=== PATIENT | female | born 1995 | race Caucasian/White ===

== ENCOUNTER 2016-06-21 15:16 | Inpatient (IN) | payer BC, MEDICAID ==
[~2016-06-21] VITALS: Ht 182.9 cm; Wt 94.8 kg
[~2016-06-21 15:16] MED LIST: IBUPROFEN600 MG PO; MOTRIN600 MG PO; PERCOCET 5-3251 TAB PO; PERCOCET 5/3251 TA1 PO; PRENATAL COMPLE1 TAB
[2016-06-21] MEDS ORDERED: PRENATAL COMPLE1 TAB PO (15:26)
[2016-06-21 15:33] VITALS: BP 115/73; BMI 28.4
[2016-06-21 16:02] LABS: HEMATOCRIT 35.4 % (36.0-48.0); HEMOGLOBIN 11.7 g/dL (12-16); MCH 28.5 pg (26.0-34.0); MCHC 33.1 g/dL (31.0-37.0); MCV 86.1 fL (80.0-100.0); MEAN PLATELET VOLUME 12.4 fL (7.4-10.4); RBC 4.11 10x6/uL (4.00-5.40); RDW 13.4 % (11.5-14.5); WBC 11.5 10x3/uL (4.8-10.8)
[2016-06-21 23:15] VITALS: BP 111/57
--- NOTE | 2016-06-21 23:19 | NUR ---
PT AMBULATES TO PP ROOM 1257 WITH MINIMAL ASSISTANCE. PT IS A 21 YO G3 NOW P3 WITH OF VIABLE FEMALE TODAY @ 2015. INFANT @ 38.3 WKS GESTATION. PT WITH SUPERFICIAL LACERATIONS AND NO REPAIRS. PT S/P AMBULATION AND VOID. PT WITH JOSE CARE PERFORMED, JOSE PAD AND PANTIES IN PLACE. CLEAN GOWN PLACED. 18G SL IN PLACE TO LEFT HAND, FLUSHED WITH 5CC NS WITHOUT DIFFICULTY. NO REDNESS OR EDEMA NOTED AT SITE. PT C/O PAIN, RATES 2/10. DENIES THE NEED FOR PAIN MEDICATION AT THIS TIME. WATER MUG PROVIDED TO PT. BED IN LOW POSITION, SIDE RAILS UP TIMES 2, CALL LIGHT AND PHONE IN REACH. SO AT PT BS FOR SUPPORT AND ASSISTANCE. LINENS PROVIDED TO SO FOR NIGHT. PT ENCOURAGED TO CALL WITH ANY NEEDS.
--- NOTE | 2016-06-22 00:35 | NUR ---
RN TO PT BS FOR ROUNDS. PT RESTING IN BED IN SEMI-FOWLERS POSITION INFANT. PT IN NO ACUTE DISTRESS. PT DENIES ANY NEEDS AT THIS TIME. BED IN LOW POSITION, SIDE RAILS UP TIMES 2, CALL LIGHT AND PHONE IN REACH. SO REMAINS AT PT BS FOR SUPPORT AND ASSISTANCE. WILL CONT TO MONITOR PT STATUS.
--- NOTE | 2016-06-22 01:56 | NUR ---
RN TO PT BS. PT C/O PAIN, REQUESTS MEDICATION. 1 TAB IBUPROFEN PROVIDED TO PT AT THIS TIME. PT DENIES ANY FURTHER NEEDS AT THIS TIME. BED IN LOW POSITION, SIDE RAILS UP TIMES 2, CALL LIGHT AND PHONE IN REACH. SO REMAINS AT PT BS FOR SUPPORT AND ASSISTANCE. WILL CONT TO MONITOR PT STATUS.
--- NOTE | 2016-06-22 03:48 | NUR ---
INFANT TRANSPORTED TO PT BS IN OPEN CRIB. PT RESTING IN BED IN SEMI-FOWLERS POSITION, WITH EYES CLOSED IN NO ACUTE DISTRESS. PT AWAKENS EASILY WHEN SPOKEN TO. ID BANDS VERIFIED TIMES 2. PT ASSISTED WITH LATCHING INFANT TO BREAST FEED. BED IN LOW POSITION, SIDE RAILS UP TIMES 2, CALL LIGHT AND PHONE IN REACH. SO AT PT BS FOR SUPPORT AND ASSISTANCE. WILL CONT TO MONITOR PT STATUS.
--- NOTE | 2016-06-22 05:15 | NUR ---
RN TO PT BS FOR ROUNDS. PT RESTING IN BED IN SEMI-FOWLERS POSITION HOLDING IN NO ACUTE DISTRESS. PT REQUESTS BE TRANSPORTED TO NURSERY FOR OBSERVATION. PT DENIES ANY FURTHER NEEDS AT THIS TIME. BED IN LOW POSITION, SIDE RAILS UP TIMES 2, CALL LIGHT AND PHONE IN REACH. SO REMAINS AT PT BS FOR SUPPORT AND ASSISTANCE. TRANSPORTED TO NURSERY VIA OPEN CRIB AT THIS TIME.
--- NOTE | 2016-06-22 06:30 | NUR ---
RN TO PT BS FOR ROUNDS. PT RESTING IN BED IN RIGHT LATERAL POSITION, WITH EYES CLOSED, IN NO ACUTE DISTRESS. RESPIRATIONS EVEN AND UNLABORED. BED IN LOW POSITION, SIDE RAILS UP TIMES 2, CALL LIGHT AND PHONE IN REACH. SO REMAINS AT PT BS FOR SUPPORT AND ASSISTANCE. WILL CONT TO MONITOR PT STATUS AND GIVE REPORT TO AM SHIFT.
[2016-06-22 06:44] LABS: BASOPHILS 0.1 % (0.0-2.0); EOSINOPHILS 1.9 % (0-7); HEMATOCRIT 32.6 % (36.0-48.0); HEMOGLOBIN 10.5 g/dL (12-16); IMMATURE GRANULOCYTES 0.4 % (0-5); LYMPHOCYTES 19.1 % (15-50); MCHC 32.2 g/dL (31.0-37.0); MCV 86.9 fL (80.0-100.0); MEAN PLATELET VOLUME 11.6 fL (7.4-10.4); MONOCYTES 7.9 % (2-11); NEUTROPHILS 70.6 % (40-80); RBC 3.75 10x6/uL (4.00-5.40); RDW 13.3 % (11.5-14.5)
[2016-06-22 06:50] LABS: PLATELET COUNT 183 10x3/uL (130-400); WBC 15.5 10x3/uL (4.8-10.8)
--- NOTE | 2016-06-22 07:30 | NUR ---
RECEIVED PT LYING SUPINE IN BED. EYES CLOSED. RESP NON-LABORED. PT NOT DISTURBED TO ALLOW FOR REST. SR UP X 2. CALL LIGHT IN REACH.
[2016-06-22 08:45] VITALS: BP 116/59
--- NOTE | 2016-06-22 08:45 | NUR ---
PT SITTING UP IN BED. FINISHED WITH . VSS. HRRR WITHOUT AUDIBLE MURMUR. BBS CLEAR. BS X 4. ABDOMEN SOFT/NON-DISTENDED. FUNDUS FIRM AT U/U. RUBRA LOCHIA SMALL AMT. PT DENIES HEAVY BLEEDING OR PASSING CLOTS. NEG HOMANS' SIGN. PPP. NO EDEMA NOTED TO BLE. SL TO LEFT FOREARM. SITE CLEAR. PT C/O ABDOMINAL CRAMPING OF "3" ON 0-10 PAIN SCALE.
--- NOTE | 2016-06-22 08:57 | NUR ---
IBUPROFEN 600 MG GIVEN PO ORDERED FOR PT C/O CRAMPING OF "3" ON 0-10 PAIN SCALE. PT ALSO GIVEN DERMAPLAST SPRAY, EPIFOAM AND TUCKS FOR PERINEAL CARE. PT INSTRUCTED ON ALL MEDS. VERBALIZES UNDERSTANDING. PT PROVIDED COKE AND FRESH ICE WATER.
--- NOTE | 2016-06-22 09:45 | NUR ---
PT SITTING UP IN BED. VISITS WITH SO. DENIES C/O PAIN OR NEEDS.
--- NOTE | 2016-06-22 11:15 | NUR ---
PT SITTING UP IN BED. DENIES C/O OR NEEDS. STATES DESIRE TO SHOWER LATER.
--- NOTE | 2016-06-22 13:20 | NUR ---
PT SITTING UP IN BED. VISITS WITH SO. DENIES PAIN OR NEEDS. STATES HAS SHOWERED AND TOLERATED WELL.
[2016-06-22 13:41] VITALS: Ht 182.9 cm; Wt 94.8 kg
[2016-06-22 14:33] VITALS: BP 87/56
--- NOTE | 2016-06-22 14:33 | NUR ---
PT LYING TO LEFT SIDE IN BED. AWAKE. VSS. PT DENIES PAIN OR NEEDS. DENIES HEAVY BLEEDING OR PASSING CLOTS. FAMILY IN ROOM WITH PT.
--- NOTE | 2016-06-22 15:39 | NUR ---
PT CALLS ON LIGHT. C/O ABDOMINAL CRAMPING OF "3" ON 0-10 PAIN SCALE. IBUPROFEN 600 MG GIVEN PO ORDERED. PT INSTRUCTED ON MED. VERBALIZES UNDERSTANDING.
--- NOTE | 2016-06-22 16:20 | NUR ---
PT SITTING UP IN BED. VISITS WITH FAMILY. DENIES PAIN OR NEEDS.
--- NOTE | 2016-06-22 17:50 | NUR ---
PT SITTING UPRIGHT IN BED. FAMILY IN ROOM. PT DENIES C/O PAIN OR NEEDS.
--- NOTE | 2016-06-22 19:02 | NUR ---
REPORT GIVEN TO ON-COMING SHIFT.
[2016-06-22 19:10] VITALS: BP 116/74
--- NOTE | 2016-06-22 20:15 | NUR ---
ROUNDS MADE. PT SITTING UP IN BED VISITING W/MULTIPLE GUESTS AT BEDSIDE. PT'S PAIN AND NEEDS ASSESSED. PT DENIES PAIN AT PRESENT. REQUEST SPRITE TO DRINK. SPRITE SERVED. NO FURTHER NEEDS VOICED AT THIS TIME.
--- NOTE | 2016-06-22 21:15 | NUR ---
ROUNDS MADE. PT CURRENTLY NURSING INFANT. DENIES NEEDS OR PAIN AT PRESENT. PT ASKED TO RING CALL LIGHT ONCE SHE HAS FINISHED NURSING SO THIS RN MAY RETURN TO ADMIN RHOGAM. IT IS AGREEABLE.
--- NOTE | 2016-06-22 21:45 | NUR ---
PT RINGS CALL LIGHT FOR THIS RN TO RETURN. MOM 30ML GIVEN PER ORDERS. RHOGAM INJECTION ADMINISTERED PER ORDERED PROTOCOL TO LEFT HIP. PT TOLERATED WELL. WHILE AT BEDSIDE, PT REQUEST MOTRIN FOR C/O CRAMPING THAT SHE RATES 3/10. MOTRIN 600MG PO GIVEN. PT AND SIG OTHER TO AMBULATE TO VENDING MACHINES AT THIS TIME. PT DENIES FURTHER NEEDS. TRASH REMOVED FROM PT'S ROOM AT THIS TIME.
--- NOTE | 2016-06-22 22:30 | NUR ---
ROUNDS MADE. PT CURRENTLY SITTING UP IN BED W/SIG OTHER AT BEDSIDE. PT'S PAIN REASSESSED. PT REPORTS PAIN 0/10. SALINE LOCKED DISCONTINUED INTACT. SITE WNL. BAND AID PLACED OVER SITE. NO FURTHER NEEDS VOICED AT THIS TIME. CONTINUED PM SHIFT POC DISCUSSED W/PT. PT VEBALIZES UNDERSTANDING AND IS AGREEBLE.
--- NOTE | 2016-06-23 00:39 | NUR ---
ROUNDS MADE. PT SITTING UP IN BED NURSING. DENIES PAIN OR NEEDS AT THIS TIME.
--- NOTE | 2016-06-23 00:51 | NUR ---
PT RINGS CALL LIGHT. PT REQUESTING PAIN MEDICATION AND ICE WATER. PERCOCET 5/325MG ONE TAB TAKEN TO ROOM. PT INFORMED THAT IT HAS NOT BEEN LONG ENOUGH THAT SHE CAN HAVE MOTRIN AGAIN. PERCOCET OFFERED. PT ACCEPTS. NO FURTHER NEEDS VOICED AT THIS TIME. SIG OTHER SITTING ON SIDE IF BED W/PT.
--- NOTE | 2016-06-23 02:03 | NUR ---
ROUNDS MADE. PT RESTING QUIETLY TO LEFT SIDE W/EYES CLOSED. RESP EVFEN. SIG OTHER IN BED W/PT. BOTH LEFT UNDISTURBED AT THIS TIME TO ALLOW FOR REST.
--- NOTE | 2016-06-23 03:09 | NUR ---
infant transported via crib to pt's room. pt awakened. positions self to sitting. infant placed in pt's arms for nursing. no needs voiced at this time.
--- NOTE | 2016-06-23 04:08 | NUR ---
ROUNDS MADE. PT SITTING UP IN BED. UP IN SIG OTHER'S ARMS. PT DENIES PAIN OR NEEDS AT THIS TIME.
--- NOTE | 2016-06-23 06:08 | NUR ---
ROUNDS MADE. PT RESTING QUIETLY W/EYES CLOSED IN SUPINE POSITION. RESP EVEN. PT LEFT UNDISTURBED AT THIS TIME.
[2016-06-23 06:15] LABS: RAPID PLASMA REAGIN Non Reactive (Non Reactive)
--- NOTE | 2016-06-23 06:55 | NUR ---
REPORT GIVEN TO ONCOMING SHIFT.
--- NOTE | 2016-06-23 07:45 | NUR ---
TO ROOM FOR AM ASSESSMENT WITH JORDAN RILEY RN. PT AWAKENED, LIGHTS TURNED ON/DIM IN ROOM. TAKEN TO ROOM, BY CRIB, BANDS VERIFIED. PT DENIES HEAVY BLEEDING OR PASSING CLOTS. PT HAS BREAKFAST TRAY ON BEDSIDE TABLE. VISITOR ASLEEP ON SOFA. SR UP X 2, CALL LIGHT AND PHONE WITHIN REACH.
[2016-06-23 07:55] VITALS: BP 104/61
--- NOTE | 2016-06-23 08:15 | NUR ---
dr. matthews in room speaking with pt.
--- NOTE | 2016-06-23 09:07 | NUR ---
PT SITTING UP IN BED WITH ON CHEST. DISCUSSED DISCHARGE INSTRUCTIONS. INCLUDED: PELVIC REST, PAIN CONTROL, USING BETADINE RINSE, FOLLOW UP APPT, AND SIGNS AND SYMPTOMS OF INFECTION. PRESCRIPTIONS GIVEN. PT VERABLIZED UNDERSTANDING AND DENIES QUESTIONS.
--- NOTE | 2016-06-23 09:08 | NUR ---
LE@ 8:00 Carol 06/23/16 S: Patient states is going great. This is her 3rd baby she has decided to breastfeed again. O: Patient is sitting up in bed holding , FOB at bedside. Congratulated on delivery. Encouraged to continue to latch infant for every feeding. does take time and patience in the beginning. Explain how to verify infant is latched correctly, feeding cues, benefits of skin to skin. Provided and explained handouts on engorgement, positioning, hand expression. Asked if any questions or concerns, all declined. Offered to make [facility] appointment, contact [facility] office in [place], they requested to have client call back in an hour or so, due to short staff, unable to make appointment at this time, client verbally understands. A: Patient is confident with , both parents very loving to . P: Continue to support exclusively Levar Aguilar, CLC
--- NOTE | 2016-06-23 09:10 | NUR ---
discharge instructions explained to pt by kate orellana rn. prescriptions for percocet and ibuprofen given to pt, along with appt card and d/c instructions, and instruction sheet. pt denies questions. sr up x 2, call light and phone within reach.
--- NOTE | 2016-06-23 11:15 | NUR ---
PT SITTING IN BED WITH INFANT ON CHEST. DENIES NEEDS AT THIS TIME. BED LOW. PHONE AND CALL LIGHT IN REACH. SIDE RAILS UP X2.
--- NOTE | 2016-06-23 12:10 | NUR ---
PT DISCHARGED HOME VIA WHEELCHAIR TO AWAITING VEHICLE. ACCOMPANIED BY VOLUNTEER AND FAMILY MEMBER.
== END 2016-06-23 12:10 | disposition home or self-care (01) | DRG 774 ==
LOC: D.LDO 15:16 → D.LD 15:18
PROVIDERS: ADMIT Specialist
PROC: 10E0XZZ Delivery of Products of Conception, External Approach (ICD-10-PCS; principal; 2016-06-21)
DX: O98.32 Other infections with a predominantly sexual mode of transmission complicating childbirth (principal); A56.8 Sexually transmitted chlamydial infection of other sites; Z3A.38 38 weeks gestation of pregnancy; Z37.0 Single live birth; O70.0 First degree perineal laceration during delivery

== ENCOUNTER → 2018-06-01 17:38 | Outpatient (CLI) | payer MEDICAID, MEDICARE ==
[2016-06-22 13:41] VITALS: BMI 28.3
[~2018-06-01 17:38] MED LIST changes: +PRENATAL COMPLE1 TAB PO
== END | disposition home or self-care (01) ==
LOC: D.LDO 17:38
DX: O26.892 Other specified pregnancy related conditions, second trimester (principal); Z3A.24 24 weeks gestation of pregnancy; R10.2 Pelvic and perineal pain

== ENCOUNTER 2018-08-02 20:10 | Outpatient (CLI) | payer MEDICAID ==
[2016-06-22 13:41] VITALS: BMI 28.3
== END 2018-08-02 20:45 ==
LOC: D.LDO 20:10
PROVIDERS: ATTEND Obstetrics & Gynecology
DX: O26.899 Other specified pregnancy related conditions, unspecified trimester (principal); Z3A.00 Weeks of gestation of pregnancy not specified

== ENCOUNTER → 2018-08-22 15:55 | Outpatient (CLI) | payer MEDICAID ==
[2016-06-22 13:41] VITALS: BMI 28.3
== END | disposition home or self-care (01) ==
LOC: D.LDO 15:55
PROVIDERS: ATTEND Obstetrics & Gynecology
DX: O26.893 Other specified pregnancy related conditions, third trimester (principal); Z3A.36 36 weeks gestation of pregnancy

== ENCOUNTER 2018-09-06 17:15 | Inpatient (IN) | payer MEDICAID ==
[~2018-09-06] VITALS: Ht 177.8 cm; Wt 105.7 kg
[2018-09-06 19:45] LABS: HEMATOCRIT 35.4 % (36.0-48.0); HEMOGLOBIN 11.8 g/dL (12-16); MCH 29.5 pg (26.0-34.0); MCHC 33.3 g/dL (31.0-37.0); MCV 88.5 fL (80.0-100.0); MEAN PLATELET VOLUME 10.7 fL (7.4-10.4); RDW 13.3 % (11.5-14.5); WBC 11.7 10x3/uL (4.8-10.8)
[2018-09-06 20:30] VITALS: BP 113/59; Ht 177.8 cm; Wt 105.7 kg
--- NOTE | 2018-09-07 16:24 | NUR ---
RECEIVED PT FROM VIA STRETCHER TO ROOM 1273. PT TRANSFERS ONTO BED PER SELF. VSS. ABDOMINAL DRESSING DRY WITHOUT DRAINAGE NOTED. ICE PACK TO INCISION. RUBRA LOCHIA MOD AMT WITHOUT CLOTS NOTED. PERIPAD CHANGED. GARZA TO GRAVITY DRAINING DARK, YELLOW URINE. SCDS ON BLE. AWAITING CENTRAL SUPPLY TO BRING SCD PUMP. PIV SITE CLEAR. LR INFUSING AT KVO AND PITOCIN 20 IN NS 1000 ML INFUSING AT 125 ML/HR. PT STATES PAIN OF "3" ON 0-10 PAIN SCALE. MOTRIN 800 MG GIVEN PO ORDERED. PT INSTRUCTED ON MED. VERBALIZES UNDERSTANDING.
[2018-09-07 16:25] VITALS: BP 101/60
--- NOTE | 2018-09-07 18:02 | NUR ---
PT SITTING UPRIGHT IN BED. C/O INCISIONAL PAIN OF "5" ON 0-10 PAIN SCALE. PERCOCET 5/325 GIVEN PO ORDERED. PT INSTRUCTED ON MED. VERBALIZES UNDERSTANDING.
--- NOTE | 2018-09-07 19:07 | NUR ---
PIV CONVERTED TO SALINE LOCK. GARZA DC'D WITH 225 ML OF DARK, YELLOW URINE NOTED IN BAG. PERIPAD CHANGED WITH MOD AMT OF RUBRA LOCHIA NOTED. PT DENIES URGE TO VOID AT THIS TIME. PT INSTRUCTED TO CALL NURSE FOR ASSISTANCE OUT OF BED. VERBALIZES UNDERSTANDING.
--- NOTE | 2018-09-07 20:28 | NUR ---
PIV TO L HAND FLUSHED WITHOUT DIFFICULTY, GOOD BLOOD RETURN NOTED, NO S/S OF INFILTRATION NOTED. ANCEF HUNG PER ORDER. SHIFT ASSESSMENT COMPLETED PER FLOW SHEET. VSS. FUNDUS FIRM MIDLINE AND U2 WITH SMALL AMT RUBRA LOCHIA, NO CLOTS NOTED. BLADDER NONDISTENDED. DENIES NEED TO VOID AT THIS TIME, STATES THAT SHE HAS NOT PASSED FLATUS AT THIS TIME. ABD NONDISTENDED. DRSG NOTED AT UMBILICUS WITH QUARTER SIZED AREA SEROSANGUINOUS DRAINAGE NOTED, AREA MARKED. 1+ BLE EDEMA NOTED. SCD'S ON BLE. C/O PAIN 4-5/10 CONSTANT BURNING AND STINGING "ON THE INSIDE, MAYBE WHERE MY TUBES ARE." WILL NOTIFY DR. MARIN OF PT C/O PAIN. SIGNIFICANT OTHER AT BEDSIDE, SUPPORTIVE AND ATTENTIVE TO PT AND INFANT NEEDS. RESTING QUIETLY IN OPEN CRIB AT THIS TIME. BED IN LOW POSITION WITH UPPER SIDE RAILS RAISED X2. CALL LIGHT AND PHONE WITHIN REACH. WILL CONTINUE TO MONITOR AND ASSIST PRN.
[2018-09-07 20:29] VITALS: BP 118/69
--- NOTE | 2018-09-07 20:34 | NUR ---
DR. MARIN NOTIFIED OF PT C/O PAIN. PER DR. MARIN SHE WILL PLACE ORDER FOR MEDS FOR BREAKTHROUGH PAIN.
--- NOTE | 2018-09-07 20:51 | NUR ---
CONTINUES TO RATE PAIN 5/10. FENTANYL GIVEN SLOW IVP PER ORDER. PT EDUCATED ON MEDICATION, VERBALIZES UNDERSTANDING AND DENIES QUESTIONS. REINFORCED FALL PRECAUTIONS WITH PT AND USING CALL LIGHT FOR ASSISTANCE OOB, VERBALIZES UNDERSTANDING AND DENIES NEEDS. BED IN LOW POSITION AND UPPER SIDE RAILS RAISED X2. CALL LIGHT AND PHONE WITHIN REACH. WILL CONTINUE TO MONITOR AND ASSIST PRN.
--- NOTE | 2018-09-07 21:02 | NUR ---
ANCEF INFUSION COMPLETE. PIV TO L HAND FLUSHED AND SL LOCKED. PT REPORTS THAT SHE IS FEELING DROWSY AND IS GOING TO TRY TO REST. BED IN LOW POSITION WITH UPPER SIDE RAILS RAISED X2. CALL LIGHT AND PHONE WITHIN REACH. WILL CONTINUE TO MONITOR AND ASSIST PRN.
--- NOTE | 2018-09-07 21:20 | NUR ---
PAIN REASSESSMENT COMPLETED. PT RESTING QUIETLY WITH EYES CLOSED LAYING ON RIGHT SIDE. RESPIRATIONS REGULAR AND UNLABORED, NO S/S OF DISTRESS NOTED. FOB HOLDING INFANT. BED IN LOW POSITION WITH UPPER SIDE RAILS RAISED X2. CALL LIGHT AND PHONE WITHIN REACH. WILL CONTINUE TO MONITOR AND ASSIST PRN.
--- NOTE | 2018-09-07 22:45 | NUR ---
UP TO BATHROOM WITH SHAE POON. PER Anival VELÁZQUEZ PCT PT WITH LARGE VOID. PERICARE DONE PER PT. PERIPADS AND PANTIES GIVEN. LINEN AND GOWN CHANGE DONE. PT REPORTS THAT SHE IS DROWSY, DENIES PAIN AT THIS TIME. STEADY GAIT NOTED. BACK TO BED, BED IN LOW POSITION WITH UPPER SIDE RAILS RAISED X2. CALL LIGHT AND PHONE WITHIN REACH. SCD'S BACK ON BLE. WILL CONTINUE TO MONITOR AND ASSIST PRN.
[2018-09-08] VITALS (7 sets, daily range): BP systolic 93–114; BP diastolic 53–65
--- NOTE | 2018-09-08 00:10 | NUR ---
PT MEDICATED AT THIS TIME FOR PAIN LEVEL OF 5. WILL CONTINUE TO MONITOR. Daniella GARCÍA RN
--- NOTE | 2018-09-08 00:27 | NUR ---
VSS, FUNDUS REMAINS FIRM, MIDLINE AND U2 WITH SMALL AMT RUBRA LOCHIA. SCDS OFF FOR PT TO GET UP TO VOID. VOIDED 600 MLS, PERICARE DONE PER PT. PANTIES AND PADS CHANGED. ENCOURAGED PT TO AMBULATE IN [place], DECLINES AT THIS TIME. STATES THAT SHE JUST WANTS TO REST FOR NOW. EDUCATED ABOUT IMPORTANCE OF AMBULATING TO PREVENT, POST OP COMPLICATIONS, VERBALIZES UNDERSTANDING. BACK TO BED, SCD'S BACK ON BLE. DRSG REMAINS INTACT WITH NO NEW DRAINAGE FROM PREVIOUSLY MARKED AREA AT 2100 BY THIS RN. BED IN LOW POSITION WITH UPPER SIDE RAILS RAISED X2. CALL LIGHT AND PHONE WITHIN REACH. WILL CONTINUE TO MONITOR AND ASSIST PRN.
--- NOTE | 2018-09-08 00:40 | NUR ---
CALLS VIA CALL LIGHT. REQUEST THAT BE TAKEN TO NBN. PAIN REASSESSMENT COMPLETED. 07/01, DENIES NEED FOR ADDITIONAL INTERVENTION. STATES "I THINK THAT I'M JUST SORE." INFANT RESTING QUIETLY IN OPEN CRIB, SWADDLED. BACK TO NBN PER PT REQUEST.
--- NOTE | 2018-09-08 03:15 | NUR ---
UP TO VOID. PERICARE DONE PER PT. AMBULATORY IN [place] WITH STAND BY ASSIST. STEADY GAIT NOTED. ORAL CARE DONE PER PT. ICE WATER PROVIDED. DENIES NEEDS AT THIS TIME.
--- NOTE | 2018-09-08 04:10 | NUR ---
L HAND PIV FLUSHES WITHOUT DIFFICULTY, NO S/S OF INFILTRATION NOTED. ANCEF HUNG PER ORDER. C/O ABD AND UMIBILICAL INCISIONAL PAIN /10, PERCOCET GIVEN PER ORDER AND PT REQUEST. VSS. FUNDUS REMAINS FIRM, MIDLINE AND U2, SMALL AMT RUBRA LOCHIA. SCD'S OFF BLE PER PT REQUEST. ICE PACK FOR INCISION PROVIDED PER PT REQUEST. DENIES ADDITIONAL NEEDS. BED IN LOW POSITION WITH UPPER SIDE RAILS RAISED X2. RESTING IN OPEN CRIB AT BEDSIDE. CL AND PHONE WITHIN REACH. WILL CONTINUE TO MONITOR AND ASSIST PRN.
--- NOTE | 2018-09-08 04:55 | NUR ---
ANCEF INFUSION COMPLETE, L HAND PIV SL. PT RESTING WITH EYES CLOSED, EASILY AROUSES TO VOICE. DENIES PAIN AT THIS TIME. DECLINES SCD PLACEMENT. BED IN LOW POSITION WITH UPPER SIDE RAILS RAISED X2. CALL LIGHT AND PHONE WITHIN REACH. WILL CONTINUE TO MONITOR AND ASSIST PRN.
[2018-09-08 06:35] LABS: BASOPHILS 0.2 % (0-2); HEMATOCRIT 28.5 % (36.0-48.0); HEMOGLOBIN 9.6 g/dL (12-16); IMMATURE GRANULOCYTES 0.9 % (0-5); LYMPHOCYTES 19.1 % (15-50); MCH 30.1 pg (26.0-34.0); MCHC 33.7 g/dL (31.0-37.0); MCV 89.3 fL (80.0-100.0); MEAN PLATELET VOLUME 10.3 fL (7.4-10.4); MONOCYTES 10.8 % (2-11); PLATELET COUNT 146 10x3/uL (130-400); RDW 13.8 % (11.5-14.5); WBC 11.5 10x3/uL (4.8-10.8)
[2018-09-08 06:38] LABS: RBC 3.19 10x6/uL (4.00-5.40)
--- NOTE | 2018-09-08 06:38 | NUR ---
PT RESTING ON LEFT SIDE RESTING WITH EYE CLOSED. RESPIRATIONS REGULAR AND UNLABORED, NO S/S OF DISTRESS NOTED. BED IN LOW POSITION WITH UPPER SIDE RAILS RAISED X2. CALL LIGHT AND PHONE WITHIN REACH. WILL CONTINUE TO MONITOR AND ASSIST PRN.
--- NOTE | 2018-09-08 07:05 | NUR ---
SBAR HANDOFF RECEIVED FROM HIPOLITO BHAGAT RN.
--- NOTE | 2018-09-08 07:50 | NUR ---
VSS. SITTING UPRIGHT IN BED, 45 DEGEES HOB. NO SIGNS OF RESP DISTRESS OR OTHER DISTRESS NOTED OR REPORTED. SKIN WARM DRY AND PINK. FUNDUS FIRM AT UMBILICUS; DENIES PASSAGE OF CLOTS VAGINALLY OR SATURATION OF PERIPAD WITHIN 1 HR OR LESS. ABD DSG INTACT WITH NEW DRAINAGE NOTED. BOWEL SOUNDS PRESENT BUT DENIES PASSAGE OF GAS RECTALLY. PRUNE JUICE AND 7 UP GIVEN TO AID IN PASSAGE OF GAS RECTALLY. INSTRUCTED TO WALK IN [place] AT LEAST 10 MIN, EVERY 2 HR UNTIL PASSING GAS RECTALLY. BONDING WELL WITH ; IN PROGRESS; PROPER LATCH/SUCK/SWALLOW. SALINE LOCK LEFT WRIST INTACT WITH NO SIGNS OF COMPLICATIONS. BBS= AND CTA. DENIES DIFFICULTY VOIDING.
--- NOTE | 2018-09-08 08:23 | NUR ---
PERCOCET FOR PAIN.
--- NOTE | 2018-09-08 10:00 | NUR ---
WALKING IN [place] WITH IN CRIB. FAMILY MEMBER AT SIDE. NO SIGNS OF COMPLICAITONS. DENIES DIZZINESS OR LIGHTHEADNESS. REPORTS PAIN AT LEVEL 3 ON 0-10 SCALE. SKIN WARM DRY AN DPINK.
--- NOTE | 2018-09-08 11:30 | NUR ---
REPORTS PASSAGE OF GAS RECTALLY. SHOWERED. DENIES DIZZINESS OR LIGHTHEADEDNESS.
--- NOTE | 2018-09-08 12:33 | NUR ---
SLEEPING. EYES CLOSED; RESP REG AND EVEN. LYING ON RIGHT SIDE. NO SIGNS OF RESP DISTRESS OR OTHER DISTRESS NOTED. SKIN WARM DRY AND PINK. LEFT WRIST SALINE LOCK INFUSING ANCEF AT 100ML/HR; NO SIGNS OF COMPLICATIONS AT INSERTION SITE.
--- NOTE | 2018-09-08 14:00 | NUR ---
SPOKE WITH DR MARIN ABOUT SURGICAL DSG AND INFORMED THAT PTIENT TOOK SHOWER AND THAT DSG REMAINS INTACT. DR MARIN SAYS TO LEAVE DSG INTACT, OK TO SHOWER WITH DSG INTACT.
--- NOTE | 2018-09-08 15:00 | NUR ---
REMAINS STABLE. REPORTS PAIN AT LEVEL 2. NO SIGNS OF DISTRESS. UP AND ABOUT IN ROOM OFF AND ON., CARING FOR .
--- NOTE | 2018-09-08 16:15 | NUR ---
WALKING IN HALLS WITH IN OPENCRIB. REPORTS SOME ABD DISCOMFORT FROM FLATUS. WILL MEDICATE WITH ROUTINE IBUPROFEN. REMAINS STABLE
--- NOTE | 2018-09-08 17:31 | NUR ---
REMAINS STABLE. TEARFUL. STATES SHE IS JUST EMOTIONAL. REPORTS PAIN SUBSIDING TO LEVEL 3 NOW. HOLDING INFANT.
--- NOTE | 2018-09-08 18:08 | NUR ---
REMAINS STABLE WITH NO SIGNS OF COMPLICATIONS.
--- NOTE | 2018-09-08 19:47 | NUR ---
PT. AWAKE AND ORIENTED. HOLDING AT PRESENT. SALINE LOCK NOTED IN LT HAND. RATES ABD. PAIN IS 6 OF 10 ON PAIN SCALE. DESCRIBES BURNING. DRESSING AT UMBILICUS CLEAN AND DRY. LOCHIA RUBRA SCANT. NO EDEMA OF LOWER EXTREMITIES NOTED. DENIES PAIN OR DISCOMFORT IN LOWER EXTREMITIES. NO REDNESS NOR CHANGE IN SKIN TEMP. NOTED IN LOWER EXTREMITIES. PT. REQUESTING PERCOCET FOR PAIN. NO REDNESS NOTED AT IV SITE NOR EDEMA.
--- NOTE | 2018-09-08 20:02 | NUR ---
PERCOCET GIVEN ORDERED.
--- NOTE | 2018-09-08 21:19 | NUR ---
PT. SITTING UP IN BED EATING FOOD BROUGHT FROM OUTSIDE. FOB ON SOFA AND INFANT IN OPEN CRIB AT BEDSIDE. ANCEF 2MG GIVEN ORDERED. PT.INQUIRING OF HOW MANY MORE DOSES THAT SHE WOULD BE GIVEN. PT. INFORMED THAT NEXT DOSE AT 0400 WILL BE THE LAST. PT. DENIES BOWEL MOVEMENT ALTHOUGH STATES IS PASSING GAS. DISCUSS MILK OF MAGNESIA ORDER AND PT. DESIRES. DISCUSSED WITH PT. SCHEDULED MOTRIN AND NEEDING TO WAKE HER DURING THE NIGHT WHEN DUE. PT. DESIRES TO SLEEP IN BETWEEN FEEDING AND WILL CALL THIS NURSE IS MEDICATION IS DESIRED. SIDE RAILS UP X 2 AND CALL LIGHT WITHIN REACH.
--- NOTE | 2018-09-08 21:50 | NUR ---
ANCEF INFUSION COMPLETED. PT. LYING ON BACK WITH HOB AT 30 DEGREES. DENIES ANY NEEDS.
--- NOTE | 2018-09-08 23:00 | NUR ---
LYING ON RT SIDE WITH EYES CLOSED. RESPIRATIONS UNLABORED. WILL AWAIT NEW VISIT FROM INFANT TO CHECK VITAL SIGNS.
--- NOTE | 2018-09-08 23:46 | NUR ---
INFANT TO ROOM FOR FEEDING. PT. AWAKENED FOR FEEDING. ID BANDS OF MOTHER AND INFANT MATCHED. VITAL SIGNS OBTAINED. INFANT HANDED TO PT. FOR FEEDING. INFANT QUIETS WHEN BEING HELD. FOB SLEEPING ON SOFA.
--- NOTE | 2018-09-09 00:55 | NUR ---
PT. AMBULATORY TO DESK AND REPORTS THAT SHE IS READY FOR MOTRIN. INFORMED WOULD BRING MEDICATION TO HER.
--- NOTE | 2018-09-09 01:05 | NUR ---
INFANT IN OPEN CRIB AT BEDSIDE. MOTRIN GIVEN ORDERED FOR PAIN SCORE OF 5 OF 10 FOR ABD. DISCOMFORT. FOB ASLEEP ON SOFA. INQUIRED IF PT. DESIRED INFANT RETURNED TO NBN AND PT. STATED THAT SHE DID AND SAME DONE.
--- NOTE | 2018-09-09 04:02 | NUR ---
INTO ROOM FOR ANCEF ADMINISTRATION. INFANT SLEEPING IN MOTHER'S ARM. AWAKENED PT. FOR SCANNING OF BRACLET FOR MED ADMINISTRATION. FOB SLEEPING ON SOFA.
--- NOTE | 2018-09-09 04:13 | NUR ---
PT. REQUESTING PERCOCET FOR PAIN OF 6 OF 10 ON PAIN SCALE. STATES IS ABD. DISCOMFORT. CAUTIONED PT. THAT SINCE SHE WILL GET SLEEPY FROM THE MEDICATION SHE MIGHT NEED TO PUT THE INFANT IN HIS OPEN CRIB TO SLEEP BECAUSE IT IS NOT RECOMMENDED TO SLEEP WITH THE IN THE BED WITH YOU. PT. STATES IT IS PROBABLY TIME FOR HIM TO NURSE. FOB ASLEEP ON SOFA.
[2018-09-09 04:18] VITALS: BP 100/51
--- NOTE | 2018-09-09 04:40 | NUR ---
ANCEF INFUSION COMPLETED. PIV REMOVED PER PT REQUEST. TIP INTACT. TOLERATED WELL. BANDAID PLACED OVER INSERTION SITE.
--- NOTE | 2018-09-09 05:08 | NUR ---
AT PRESENT. RATES PAIN A 2 OF 10 ON PAIN SCALE.
[2018-09-09 08:34] VITALS: BP 105/67
--- NOTE | 2018-09-09 08:34 | NUR ---
AM ASSESSMENT COMPLETED CHARTED ON FLOWSHEET. PT RATES PAIN AT 4/10 AND IS GIVEN SCHEDULED MOTRIN 800MG. INFANT TO BREAST AT THIS TIME. DR MARIN AT BEDSIDE TALKING WITH PATIENT ABOUT EXPECTATIONS WITH DISCHARGE. PT QUESTIONS MD ABOUT BANDAGE AT UMBILICAL AREA FROM TUBAL AND HOW LONG IT SHOULD BE LEFT IN PLACE, PER MD MAY REMOVE AFTER ONE WEEK. SHE VOICES HER UNDERSTANDING AND DENIES ANY FURTHER QUESTIONS. JOSE PADS AND MESH BREIFS PLACED IN BATHROOM REQUESTED. SIDE RAILS UP X 2 WITH CALL LIGHT IN REACH.
--- NOTE | 2018-09-09 09:25 | NUR ---
CALLED TO ROOM PER DR MARIN TO WITNESS CIRCUMCISION CONSENT.
--- NOTE | 2018-09-09 09:40 | NUR ---
REQUESTED PERCOCET FOR 10/29 BURNING INSIDE BTL INCISION SITE. PERCOCET 5 MG GIVEN PO. ANTICIPATES DC HOME AFTER INFANT IS CIRCUMCISED. RECEIVED WRITTEN INFORMATION ON CIRCUMCISION. NON SMOKER, RH NEG, STATES "HE IS A NEGATIVE" REGARDING BLOOD TYPE. PER PATIENT RECEIVED TDAP AND FLU VACCINATION DURING . ANTICIPATE DC HOME. FOB AND INFANT IN ROOM. NEW PADS AND UNDERWEAR GIVEN TO PATIENT. SIDERAILS UP X 2, CALL LIGHT IN REACH.
[2018-09-09] MEDS ORDERED: PERCOCET 5-3251 TAB PO (09:46)
[2018-09-09] MEDS ORDERED: IBUPROFEN800 MG PO (09:46)
--- NOTE | 2018-09-09 11:25 | NUR ---
DC TEACHING COMPLETED. DISCUSSED ROUTINE PP CARE, PP DEPRESSION, DANGER SIGNS, S&S INFECTION, MEDICATION ADMINISTRATION AND FOLLOW-UP. VERBAL AND WRITTEN INFORMATION AND INCLUDED AND BREAST CARE. QUESTIONS ANSWERED. WAITING ON INFANT DC AFTER CIRCUMCISION.
--- NOTE | 2018-09-09 13:42 | NUR ---
SITTING UP IN BED EATING LUNCH. REQUESTED PAIN MEDICATION FOR 6/10 INCISIONAL PAIN. SAYS IT GOT WORSE AFTER WALKING. WAITING FOR INFANT DC HOME. REMINDED PT THAT MD WROTE SCRIPT FOR ONE PERCOCET Q 6 HRS. VERBALIZED UNDERSTANDING.
--- NOTE | 2018-09-09 14:43 | NUR ---
DC'D VIA WHEELCHAIR TO CAR BY Ger FERGUSON RN. IN CARSEAT. FOB DRIVING. ALL BELONGINGS REMOVED FROM ROOM. HAS PRESCRIPTION AND DC INSTRUCTIONS.
== END 2018-09-09 14:43 | disposition home or self-care (01) | DRG 798 ==
LOC: D.LDO 17:15 → D.LD 17:46
PROVIDERS: ADMIT Obstetrics & Gynecology; ATTEND Obstetrics & Gynecology
PROC: 0UB70ZZ Excision of Bilateral Fallopian Tubes, Open Approach (ICD-10-PCS; 2018-09-07)
PROC: 10907ZC Drainage of Amniotic Fluid, Therapeutic from Products of Conception, Via Natural or Artificial Opening (ICD-10-PCS; 2018-09-07)
PROC: 10E0XZZ Delivery of Products of Conception, External Approach (ICD-10-PCS; principal; 2018-09-07 12:30)
DX: O36.8130 Decreased fetal movements, third trimester, not applicable or unspecified (principal); Z37.0 Single live birth; Z3A.38 38 weeks gestation of pregnancy; Z30.2 Encounter for sterilization; Z30.09 Encounter for other general counseling and advice on contraception; O90.81 Anemia of the puerperium